=== PATIENT | female | born 1965 | race Asian ===

== ENCOUNTER → 2023-05-09 10:27 | Outpatient (CLI) | payer OTHER, SELFPAY ==
[2023-05-09 13:23] LABS: BUN Creatinine Ratio 21.1 (6-22); Blood Urea Nitrogen 8 mg/dL (7-17); Calcium 8.8 mg/dL (8.4-10.2); Carbon Dioxide 25 mmol/L (22-32); Chloride 105 mmol/L (98-107); Estimated Glomerular Filt Rate > 60 mL/min (>60); Glucose 202 mg/dL (80-110); HEMOLYSIS < 15 (0-50); Potassium 4.1 mmol/L (3.4-5.1); Sodium 137 mmol/L (137-145)
== END ==
PROVIDERS: PCP Family Medicine; Referring Provider Urology; Visit Provider Urology
DX: R31.0 Gross hematuria (principal); Z77.22 Contact with and (suspected) exposure to environmental tobacco smoke (acute) (chronic)
CPT/HCPCS: 36415; 80048

== ENCOUNTER → 2023-05-11 12:48 | Outpatient (CLI) | payer OTHER, SELFPAY ==
--- NOTE | 2023-05-11 12:49 | DI.CT.S_ITS ---
PROCEDURE: CT IVP A/P W/WO INDICATIONS: Gross hematuria Secondhand smoke exposure TECHNIQUE: Optional 5 mm thick noncontrast images acquired from the diaphragm to the symphysis pubis. After the administration of intravenous contrast, 5 mm thick images acquired from the diaphragm to the symphysis pubis after a 10-minute delay. 2 mm thick coronal and sagittal reformats were then performed of the kidneys and ureters. For radiation dose reduction, the following was used: automated exposure control, adjustment of mA and/or kV according to patient size. COMPARISON: None. FINDINGS: Image quality: Diagnostic. Kidneys and Ureters: Both kidneys are normal in size, without hydronephrosis or nephrolithiasis. No perinephric fat stranding. There is normal bilateral renal enhancement. Renal calyces appear normal in morphology when filled with contrast. Opacified portions of both ureters demonstrate normal caliber Bladder: Bladder is under distended, limiting evaluation, with no CT evidence of a mass. No calcified bladder stones. OTHER: Lower chest: Unremarkable. Liver: No solid mass. Simple cyst in the hepatic dome. Gallbladder: No radiopaque gallstones or wall thickening. Biliary ducts: No biliary dilation. Pancreas: No ductal dilation. Spleen: Size is within normal limits. Adrenal Glands: No adrenal nodules. Stomach and Bowel: No hiatal hernia. Stomach is grossly normal. Small and large bowel is normal in caliber, without obstruction. Diverticulosis, without diverticulitis. Fecalized contents within the small bowel. Peritoneum: No abnormal intraperitoneal fluid. No free air. Ventral Wall: No hernia. Abdominal Nodes: No retroperitoneal or mesenteric adenopathy by size criteria. Vessels: Aorta and inferior vena cava are normal in size. PELVIS: Pelvic Organs: Unremarkable. Pelvic Nodes: No enlarged lymph nodes. Miscellaneous: No inguinal hernias are seen. Bones: No aggressive osseous abnormality. No acute fracture. Mild multilevel degenerative changes of the spine. IMPRESSION: 1. No nephrolithiasis or filling defects within the opacified renal collecting system or ureters. 2. Bladder is under distended, limiting evaluation, with no CT evidence of a mass or stone. 3. Diverticulosis, without diverticulitis. 4. Nonobstructive bowel. Fecalized loops of small bowel suggestive of slow transit. Dictated by: Jean Hanna M.D. on 05/11/2023 at 16:53 Approved by: Jean Hanna M.D. on 05/11/2023 at 16:58
== END ==
LOC: CT 12:49
PROVIDERS: PCP Family Medicine; Referring Provider Urology; Visit Provider Urology
DX: K57.90 Diverticulosis of intestine, part unspecified, without perforation or abscess without bleeding (principal); Z77.22 Contact with and (suspected) exposure to environmental tobacco smoke (acute) (chronic); R31.0 Gross hematuria
CPT/HCPCS: 74178; Q9967

== ENCOUNTER → 2024-05-24 09:49 | Outpatient (CLI) | payer OTHER, SELFPAY ==
--- NOTE | 2024-05-24 09:50 | DI.MG.S_ITS ---
MM diagnostic mammo unilat RT, US breast RT limited: 05/24/2024 BI-RADS: 4C CLINICAL: 59-year old female for right diagnostic mammogram and right diagnostic breast ultrasound. Callback from outside screening mammogram. Tyrer-Cuzick lifetime risk of 6.5%. No personal or first-degree family history of breast cancer. PRIOR EXAMS 03/29/2024. MAMMOGRAPHY TECHNIQUE: 2D and 3D (tomosynthesis) digital mammographic views obtained, with additional images as needed for full coverage. Current study was also evaluated with a Computer Aided Detection (CAD) system. ULTRASOUND TECHNIQUE: Right targeted breast ultrasound of the area of clinical interest and the axilla was performed with image documentation. Real-time lane scale and color doppler imaging of the area of clinical interest was performed with image documentation. DENSITY Right: B. There are scattered areas of fibroglandular density. MAMMOGRAPHY FINDINGS Right: Upper Outer at 11:00, 8 cm from nipple, Middle depth, measuring 1.9 cm: Correlating with findings on screening mammogram there are suspicious grouped fine pleomorphic calcifications. The calcifications are located anterior and slightly lateral to the mass. Right (finding-1): Upper Outer at 11:00, Middle depth, measuring 0.4 cm: Correlating with findings on screening mammogram there is a spiculated, irregular, high-density mass present. ULTRASOUND FINDINGS Right (finding-1): Upper Outer at 11:00, 10 cm from nipple, measuring 0.4 x 0.5 x 0.3 cm: Correlating with findings on mammogram there is an irregularly shaped, spiculated, hypoechoic mass. Doppler shows single vessel vascularity. Right: No abnormal lymph nodes are seen in the axilla. IMPRESSION: Right (Mass): Upper Outer at 11:00, 10 cm from nipple, measuring 0.4 x 0.5 x 0.3 cm * High Suspicion for Malignancy. Right (Calcification): Upper Outer at 11:00, 8 cm from nipple, Middle depth, measuring 1.9 cm * Moderate Suspicion of Malignancy. RECOMMENDATIONS Right: Upper Outer at 11:00, 8 cm from nipple, Middle depth * Stereotactic-guided biopsy for further evaluation (Consider biopsy of the anterior most portion of the calcifications to evaluate for extent of disease). Right: Upper Outer at 11:00, 10 cm from nipple * Ultrasound-guided core biopsy for further evaluation. COMMENTS: Findings and recommendations were discussed with the patient during today's examination by Dr. Self over the phone. The patient expressed agreement and understanding of the plan. OVERALL ASSESSMENT CATEGORY BI-RADS-4: Suspicious. ELECTRONICALLY SIGNED: Lucero Self M.D. on 05/24/2024 at 12:25:22 PM PT Interpreting Station ID: [id number]
== END ==
DX: R92.8 Other abnormal and inconclusive findings on diagnostic imaging of breast (principal); R92.1 Mammographic calcification found on diagnostic imaging of breast; N63.11 Unspecified lump in the right breast, upper outer quadrant
CPT/HCPCS: 76642; 77065; G0279

== ENCOUNTER → 2024-05-31 11:59 | Outpatient (CLI) | payer OTHER, SELFPAY ==
--- NOTE | 2024-05-31 12:01 | DI.CT.S_ITS ---
PROCEDURE: CT SOFT TISSUE NECK W CON INDICATIONS: ENLARGED LYMPH NODES TECHNIQUE: After the administration of intravenous contrast, 3.0 mm axial sections acquired from the sella to the aortic arch. Additional oblique axial 3.0 mm sections acquired through the pharynx. 3 mm thick coronal and sagittal reformats were generated. For radiation dose reduction, the following was used: automated exposure control. COMPARISON: None. FINDINGS: Image quality: There is artifact associated with the metallic hardware. Artifact from the metallic hardware is reduced by metal reconstruction algorithm. Lymph nodes: No enlarged lymph nodes seen throughout the neck. Vessels: Visualized vasculature appears patent. Neck spaces: The oropharynx, nasopharynx, and pharynx demonstrate no mucosal lesions. The vocal cords, false vocal cords, pyriform sinuses, epiglottis, vallecula, and tongue base all appear normal. Extramucosal spaces appear unremarkable. Glands: The parotid and submandibular glands appear normal. Thyroid gland demonstrates no significant abnormality. Miscellaneous: Visualized brain and orbits appear normal. Lung apices appear clear. Superficial soft tissues appear normal. Bones: No suspicious bony lesions. Visualized sinuses and mastoids appear unremarkable. Note is made of partial ossification of the posterior longitudinal ligament, as on series 5, image 34. IMPRESSION: No enlarged cervical lymph nodes are seen. 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 on 05/31/2024 at 14:58 Approved by: Raj Connor M.D. on 05/31/2024 at 15:00
== END ==
LOC: CT 12:00
DX: R59.0 Localized enlarged lymph nodes (principal); H59.89 Other postprocedural complications and disorders of eye and adnexa, not elsewhere classified
CPT/HCPCS: 36415; 70491; 82565; Q9967